=== PATIENT | male | born 1975 | race Hispanic/Latino ===

== ENCOUNTER 2021-08-28 02:54 | Emergency (ER) | payer OTHER ==
[~2021-08-28] VITALS: Ht 175.3 cm; Wt 117.9 kg
[2021-08-28 03:16] LABS: BASOPHILS % (AUTO) 0.3 % (0.0-5.0); EOSINOPHILS % (AUTO) 1.7 % (0.0-8.0); HEMATOCRIT 41.1 % (42-54); LYMPHOCYTES % (AUTO) 26.2 % (21.0-51.0); MEAN CORPUSCULAR HEMOGLOBIN 28.2 pg (27.0-33.0); MEAN CORPUSCULAR HGB CONC 33.6 g/dL (32.0-36.0); MEAN CORPUSCULAR VOLUME 83.9 fL (79-99); MONOCYTES % (AUTO) 8.5 % (3.0-13.0); NEUTROPHILS % (AUTO) 62.9 % (40.0-77.0); PLATELET COUNT (AUTO) 289 K/uL (130-400); RED CELL DISTRIBUTION WIDTH 13.1 % (11.0-15.5); WHITE BLOOD COUNT (AUTO) 11.5 K/uL (4.8-10.8)
[2021-08-28 03:27] LABS: CREATININE 1.1 mg/dL (0.5-1.5); POTASSIUM 3.5 mmol/L (3.5-5.1)
[2021-08-28] MEDS ORDERED: FENTANYL CITRATE PF 50 MCG/1 ML 2ML VIAL IVP ONE (03:30)
[2021-08-28] MEDS ORDERED: FAMOTIDINE 20MG VIAL IV ONE (03:30)
[2021-08-28] MEDS ORDERED: ONDANSETRON 4MG INJ IVP ONE (03:30)
[2021-08-28 03:31] LABS: ALBUMIN 3.8 g/dL (3.5-5.0); BILIRUBIN,TOTAL 0.4 mg/dL (0.2-1.0)
[2021-08-28] MEDS ORDERED: KETOROLAC 30MG VIAL (30MG/ML) IV ONE (04:00)
[2021-08-28] MEDS ORDERED: PROMETHAZINE HCL 25 MG/ML 1ML AMPULE IM ONE (04:00)
[2021-08-28 07:24] LABS: APPEARANCE,URINE Clear (CLEAR); BILIRUBIN,URINE Negative (NEGATIVE); COLOR,URINE Yellow (YELLOW); GLUCOSE, URINE (UA) Negative (NEGATIVE); KETONES,URINE Trace mg/dL (NEGATIVE); LEUKOCYTE ESTERASE ,URINE Negative (NEGATIVE); NITRATE,URINE Negative (NEGATIVE); OCCULT BLOOD,URINE Negative (NEGATIVE); PH,URINE 7.5 (5.0-8.0); PROTEIN,URINE Negative (NEGATIVE)
[2021-08-28 07:39] LABS: BACTERIA,URINE Rare /HPF (None Seen); RBC,URINE 0-1 /HPF (0-1); SQUAMOUS EPITHELIAL CELL,UR Rare /HPF (0-2); WBC,URINE 0-1 /HPF (0-1)
[2021-08-28] MEDS ORDERED: DICY20TA2 PO ×2 (07:43)
[2021-08-28] MEDS ORDERED: ONDA4TAB4 PO ×2 (07:43)
[2021-08-28 08:08] VITALS: BP 104/63
== END 2021-08-28 08:57 | disposition home or self-care (01) ==
LOC: EDH 02:54
DX: K80.20 Calculus of gallbladder without cholecystitis without obstruction (principal); E11.9 Type 2 diabetes mellitus without complications; I10 Essential (primary) hypertension; Z79.1 Long term (current) use of non-steroidal anti-inflammatories (NSAID); Z79.899 Other long term (current) drug therapy
CPT/HCPCS: 36415; 74176; 76705; 80053; 81001; 82550; 83690; 84484 ×2; 85025; 93005; 96372; 96374; 96375; 99285; J1885; J2405; J2550; J3010; J3490

== ENCOUNTER 2021-08-29 10:17 | Inpatient (IN) | payer OTHER ==
[~2021-08-29] VITALS: Ht 175.3 cm; Wt 126.2 kg
[~2021-08-29 10:17] MED LIST: DICY20TA2 PO; ONDA4TAB4 PO
[2021-08-29 10:54] LABS: BASOPHILS % (AUTO) 0.2 % (0.0-5.0); EOSINOPHILS % (AUTO) 0.1 % (0.0-8.0); HEMATOCRIT 44.8 % (42-54); LYMPHOCYTES % (AUTO) 8.9 % (21.0-51.0); MEAN CORPUSCULAR VOLUME 84.7 fL (79-99); MONOCYTES % (AUTO) 8.7 % (3.0-13.0); NEUTROPHILS % (AUTO) 81.5 % (40.0-77.0); PLATELET COUNT (AUTO) 286 K/uL (130-400); RED BLOOD CELL COUNT(AUTO) 5.29 MIL/uL (4.50-6.20); RED CELL DISTRIBUTION WIDTH 13.2 % (11.0-15.5); WHITE BLOOD COUNT (AUTO) 17.6 K/uL (4.8-10.8)
[2021-08-29] MEDS ORDERED: ONDANSETRON 4MG INJ IVP SCH (11:00)
[2021-08-29] MEDS ORDERED: HYDROMORPHONE 1 MG INJ IVP SCH (11:00)
[2021-08-29] MEDS: LACTATED RINGERS 1000ML 1,000 ML IV SCH (11:02)
[2021-08-29 11:29] LABS: INR 1.02 (0.85-1.15); PROTHROMBIN TIME 11.1 SEC (9.6-11.6)
[2021-08-29 11:31] LABS: CARBON DIOXIDE 32 mmol/L (21-32); CHLORIDE 99 mmol/L (101-111); CREATININE 1.3 mg/dL (0.5-1.5); GLOMERULAR FILTR. RATE CALC 63 mL/min (>60); GLUCOSE,RANDOM 123 mg/dL (70-105); POTASSIUM 3.4 mmol/L (3.5-5.1); SODIUM SERUM 139 mmol/L (136-145); UREA NITROGEN, BLOOD 19 mg/dL (7-18)
[2021-08-29 11:36] LABS: ALANINE AMINOTRANSFERASE 37 U/L (12-78); ALBUMIN 3.8 g/dL (3.5-5.0); AMYLASE 38 U/L (25-115); ASPARTATE AMINOTRANSFERASE 16 U/L (10-37); BILIRUBIN,TOTAL 1.4 mg/dL (0.2-1.0); TOTAL PROTEIN, SERUM 7.4 g/dL (6.0-8.3)
[2021-08-29 11:38] LABS: LIPASE < 50 U/L (114-286)
[2021-08-29] MEDS ORDERED: 0.9%NACL 50ML 50 ML IV ONE (12:24)
[2021-08-29] MEDS ORDERED: ONDANSETRON 4MG INJ IVP ONE (12:30)
[2021-08-29] MEDS ORDERED: ZOSYN 3.375GM+NS 50ML 3.38 GM in 0.9%NACL 50ML 50 ML IV SCH ×2 (12:30)
[2021-08-29] MEDS ORDERED: MORPHINE 5 MG/ML VIAL (5MG OR GREATER DOSE) IV ONE (12:30)
[2021-08-29] MEDS: ZOSYN 3.375GM +NS 50ML IV SCH ×2 (12:40→19:49)
[2021-08-29 17:15] VITALS: BP 125/78
[2021-08-29] MEDS: HYDROMORPHONE 0.5 MG SYG (0.5MG/0.5ML) IVP PRN ×2 (17:33→23:46)
[2021-08-29] MEDS ORDERED: GLUCAGON 1MG KIT 1 MG ML IM PRN (18:00)
[2021-08-29] MEDS ORDERED: DEXTROSE 50%-WATER 50 ML DISP.SYRIN IV PRN (18:00)
[2021-08-29] MEDS: INSULIN HUMULIN R 100 UNIT/ML 3ML SQ SCH ×2 (18:00→23:57)
[2021-08-29] MEDS ORDERED: ONDANSETRON 4MG INJ IVP PRN (18:30)
[2021-08-29 19:31] VITALS: BP 123/64
[2021-08-29] MEDS: 0.9%NACL 50ML 50 ML IV SCH (19:49)
[2021-08-29] MEDS: FAMOTIDINE 20MG VIAL IV SCH (19:50)
[2021-08-29] MEDS ORDERED: HYDROMORPHONE 1 MG INJ IVP ONE (20:40)
[2021-08-29 23:46] VITALS: BP 114/73
[2021-08-30] MEDS ORDERED: KETOROLAC 30MG VIAL (30MG/ML) IV ONE (02:43)
[2021-08-30 03:48] VITALS: BP 104/64
[2021-08-30 04:59] LABS: BASOPHILS % (AUTO) 0.2 % (0.0-5.0); HEMATOCRIT 38.7 % (42-54); LYMPHOCYTES % (AUTO) 7.1 % (21.0-51.0); MEAN CORPUSCULAR HEMOGLOBIN 27.9 pg (27.0-33.0); MEAN CORPUSCULAR HGB CONC 32.8 g/dL (32.0-36.0); MEAN CORPUSCULAR VOLUME 85.1 fL (79-99); MONOCYTES % (AUTO) 9.4 % (3.0-13.0); NEUTROPHILS % (AUTO) 82.6 % (40.0-77.0); PLATELET COUNT (AUTO) 248 K/uL (130-400); RED BLOOD CELL COUNT(AUTO) 4.55 MIL/uL (4.50-6.20); RED CELL DISTRIBUTION WIDTH 13.4 % (11.0-15.5); WHITE BLOOD COUNT (AUTO) 21.4 K/uL (4.8-10.8)
[2021-08-30] MEDS: 0.9%NACL 50ML 50 ML IV SCH ×3 (05:11→19:23)
[2021-08-30] MEDS: ZOSYN 3.375GM +NS 50ML IV SCH ×3 (05:11→19:23)
[2021-08-30 05:19] LABS: ALANINE AMINOTRANSFERASE 92 U/L (12-78); AMYLASE 28 U/L (25-115); ASPARTATE AMINOTRANSFERASE 45 U/L (10-37); BILIRUBIN,TOTAL 1.5 mg/dL (0.2-1.0); CARBON DIOXIDE 31 mmol/L (21-32); CHLORIDE 101 mmol/L (101-111); CREATININE 1.4 mg/dL (0.5-1.5); GLOMERULAR FILTR. RATE CALC 57 mL/min (>60); GLUCOSE,RANDOM 127 mg/dL (70-105); POTASSIUM 3.2 mmol/L (3.5-5.1); SODIUM SERUM 141 mmol/L (136-145); UREA NITROGEN, BLOOD 18 mg/dL (7-18)
[2021-08-30 05:20] LABS: LIPASE < 50 U/L (114-286)
[2021-08-30] MEDS: INSULIN HUMULIN R 100 UNIT/ML 3ML SQ SCH ×4 (06:00→23:27)
[2021-08-30 07:15] VITALS: BP 103/75
[2021-08-30] MEDS: HYDROMORPHONE 0.5 MG SYG (0.5MG/0.5ML) IVP PRN (08:14)
[2021-08-30] MEDS: FAMOTIDINE 20MG VIAL IV SCH ×2 (08:16→19:22)
[2021-08-30 11:10] VITALS: BP 130/88
[2021-08-30] MEDS ORDERED: HYDROMORPHONE 1 MG INJ ONE (12:21)
[2021-08-30] MEDS ORDERED: HYDROMORPHONE 1 MG INJ IVP PRN (12:30)
[2021-08-30] MEDS ORDERED: HYDROMORPHONE 0.5 MG SYG (0.5MG/0.5ML) IVP PRN (12:30)
[2021-08-30 15:10] VITALS: BP 113/46
[2021-08-30] MEDS ORDERED: KETOROLAC 15MG/ML VIAL (15MG/ML) ONE (15:42)
[2021-08-30] MEDS ORDERED: MAGNESIUM 2GM PREMIX 50ML 50 ML IV ONE (15:42)
[2021-08-30] MEDS ORDERED: LIDOCAINE HCL-MPF 1% 2ML VIAL IV PRN (16:00)
[2021-08-30] MEDS ORDERED: MAGNESIUM 2GM PREMIX 50ML 50 ML IV SCH (16:00)
[2021-08-30] MEDS: POTASSIUM CHLORIDE 10MEQ/100ML 100 ML IV PRN ×2 (18:31→19:49)
[2021-08-30 20:16] VITALS: BP 120/69
[2021-08-30] MEDS ORDERED: PROPOFOL 10 MG/ML 20ML VIAL IV ONE ×2 (22:25→22:45)
[2021-08-30] MEDS ORDERED: ONDANSETRON 4MG INJ ONE (22:25)
[2021-08-30] MEDS ORDERED: MIDAZOLAM HCL 1 MG/ML 2ML VIAL ONE (22:25)
[2021-08-30] MEDS ORDERED: LIDOCAINE PF 100MG/5ML (2%) SYRINGE 5ML ONE (22:25)
[2021-08-30] MEDS ORDERED: SUCCINYLCHOLINE CHLORIDE 20 MG/ML 10 ML VIAL ONE (22:25)
[2021-08-30] MEDS ORDERED: FENTANYL CITRATE PF 50 MCG/1 ML 5ML AMP IV ONE (22:26)
[2021-08-30] MEDS ORDERED: ROCURONIUM 10MG/1ML SYR 10 MG/ML ML ONE (22:26)
[2021-08-30] MEDS ORDERED: LIDOCAINE HCL 1% MDV 50ML VIAL ONE (22:31)
[2021-08-30] MEDS ORDERED: BUPIVACAINE/PF 0.5% 10ML VIAL ONE (22:31)
[2021-08-30] MEDS ORDERED: PHENYLEPHRINE HCL 10 MG/ML 1ML VIAL IV ONE (23:03)
[2021-08-30] MEDS ORDERED: DEXAMETHASONE SOD PHOSPHATE 10MG/ML 1ML VIAL ONE (23:15)
[2021-08-30] MEDS: LACTATED RINGERS 1000ML 1,000 ML IV SCH (23:37)
[2021-08-31] VITALS (26 sets, daily range): BP systolic 97–140; BP diastolic 50–83
[2021-08-31] MEDS ORDERED: FENTANYL CITRATE PF 50 MCG/1 ML 2ML VIAL ONE ×2 (00:18→01:01)
[2021-08-31] MEDS ORDERED: KETOROLAC 30MG VIAL (30MG/ML) ONE (00:42)
[2021-08-31] MEDS ORDERED: NEOSTIGMINE 5MG/5ML SYR IV ONE (00:45)
[2021-08-31] MEDS ORDERED: GLYCOPYRROLATE 1 MG/5 ML SYRINGE ONE (00:45)
[2021-08-31] MEDS: LACTATED RINGERS 1000ML 1,000 ML IV SCH (01:12)
[2021-08-31] MEDS: 0.9%NACL 50ML 50 ML IV SCH ×3 (04:07→20:28)
[2021-08-31] MEDS: ZOSYN 3.375GM +NS 50ML IV SCH ×3 (04:07→20:28)
[2021-08-31] MEDS: INSULIN HUMULIN R 100 UNIT/ML 3ML SQ SCH ×4 (05:30→21:00)
[2021-08-31 06:47] LABS: HEMATOCRIT 36.4 % (42-54); MEAN CORPUSCULAR HEMOGLOBIN 28.1 pg (27.0-33.0); MEAN CORPUSCULAR HGB CONC 32.1 g/dL (32.0-36.0); MEAN CORPUSCULAR VOLUME 87.5 fL (79-99); RED BLOOD CELL COUNT(AUTO) 4.16 MIL/uL (4.50-6.20); RED CELL DISTRIBUTION WIDTH 13.9 % (11.0-15.5); WHITE BLOOD COUNT (AUTO) 20.6 K/uL (4.8-10.8)
[2021-08-31] MEDS ORDERED: KCL 20 MEQ ERTAB PO PRN (07:00)
[2021-08-31] MEDS ORDERED: POTASSIUM CHLORIDE 20MEQ/100ML 100 ML IV PRN (07:00)
[2021-08-31] MEDS ORDERED: POTASSIUM CHLORIDE 10% ELIXIR 20 MEQ/15 ML UDCUP PO PRN (07:00)
[2021-08-31 07:01] LABS: ALBUMIN 2.5 g/dL (3.5-5.0); BILIRUBIN,TOTAL 0.9 mg/dL (0.2-1.0); CREATININE 1.7 mg/dL (0.5-1.5); MAGNESIUM 2.5 mg/dL (1.80-2.40); POTASSIUM 3.5 mmol/L (3.5-5.1); TOTAL PROTEIN, SERUM 6.9 g/dL (6.0-8.3)
[2021-08-31] MEDS: KETOROLAC 15MG/ML VIAL (15MG/ML) IV PRN (08:14)
[2021-08-31] MEDS: FAMOTIDINE 20MG VIAL IV SCH ×2 (08:15→20:28)
[2021-09-01 00:37] VITALS: BP 138/74
[2021-09-01] MEDS: ZOSYN 3.375GM +NS 50ML IV SCH ×3 (04:21→19:24)
[2021-09-01] MEDS: 0.9%NACL 50ML 50 ML IV SCH ×3 (04:21→19:24)
[2021-09-01 04:45] VITALS: BP 110/63
[2021-09-01] MEDS: KETOROLAC 15MG/ML VIAL (15MG/ML) IV PRN ×2 (04:45→23:30)
[2021-09-01 05:25] LABS: MEAN CORPUSCULAR HEMOGLOBIN 27.4 pg (27.0-33.0); MEAN CORPUSCULAR HGB CONC 31.5 g/dL (32.0-36.0); RED BLOOD CELL COUNT(AUTO) 3.91 MIL/uL (4.50-6.20); WHITE BLOOD COUNT (AUTO) 16.3 K/uL (4.8-10.8)
[2021-09-01 05:56] LABS: ALBUMIN 2.3 g/dL (3.5-5.0); BILIRUBIN,TOTAL 0.4 mg/dL (0.2-1.0); CREATININE 1.4 mg/dL (0.5-1.5); POTASSIUM 3.4 mmol/L (3.5-5.1); TOTAL PROTEIN, SERUM 6.7 g/dL (6.0-8.3)
[2021-09-01] MEDS: INSULIN HUMULIN R 100 UNIT/ML 3ML SQ SCH ×4 (07:30→20:07)
[2021-09-01 08:00] VITALS: BP 101/61
[2021-09-01] MEDS: FAMOTIDINE 20MG VIAL IV SCH ×2 (09:18→19:24)
[2021-09-01 12:05] VITALS: BP 116/73
[2021-09-01 16:00] VITALS: BP 105/65
[2021-09-01 20:00] VITALS: BP 156/92
[2021-09-02 00:26] VITALS: BP 138/88
[2021-09-02 04:00] VITALS: BP 116/66
[2021-09-02] MEDS: ZOSYN 3.375GM +NS 50ML IV SCH ×3 (04:44→20:11)
[2021-09-02] MEDS: 0.9%NACL 50ML 50 ML IV SCH ×3 (04:44→20:12)
[2021-09-02] MEDS: INSULIN HUMULIN R 100 UNIT/ML 3ML SQ SCH ×4 (06:04→20:12)
[2021-09-02 06:45] LABS: HEMATOCRIT 33.1 % (42-54); MEAN CORPUSCULAR HEMOGLOBIN 27.7 pg (27.0-33.0); MEAN CORPUSCULAR HGB CONC 31.4 g/dL (32.0-36.0); RED BLOOD CELL COUNT(AUTO) 3.76 MIL/uL (4.50-6.20); WHITE BLOOD COUNT (AUTO) 8.7 K/uL (4.8-10.8)
[2021-09-02 06:59] LABS: CREATININE 1.2 mg/dL (0.5-1.5); POTASSIUM 4.1 mmol/L (3.5-5.1)
[2021-09-02 08:00] VITALS: BP 124/59
[2021-09-02] MEDS: FAMOTIDINE 20MG VIAL IV SCH ×2 (08:48→20:11)
[2021-09-02 11:41] VITALS: BP 127/72
[2021-09-02 16:00] VITALS: BP 149/91
[2021-09-02 19:59] VITALS: BP 133/80
[2021-09-02] MEDS: KETOROLAC 15MG/ML VIAL (15MG/ML) IV PRN (23:52)
[2021-09-03] VITALS: BP 137/80
[2021-09-03 03:35] VITALS: BP 141/72
[2021-09-03] MEDS: 0.9%NACL 50ML 50 ML IV SCH ×2 (04:55→13:59)
[2021-09-03] MEDS: ZOSYN 3.375GM +NS 50ML IV SCH ×2 (04:55→13:46)
[2021-09-03 05:15] LABS: ALBUMIN 2.4 g/dL (3.5-5.0); BILIRUBIN,DIRECT 0.1 mg/dL (0.0-0.3); BILIRUBIN,TOTAL 0.3 mg/dL (0.2-1.0); TOTAL PROTEIN, SERUM 6.5 g/dL (6.0-8.3)
[2021-09-03] MEDS: INSULIN HUMULIN R 100 UNIT/ML 3ML SQ SCH ×2 (06:11→11:30)
[2021-09-03 08:00] VITALS: BP 133/69
[2021-09-03] MEDS: FAMOTIDINE 20MG VIAL IV SCH (09:19)
[2021-09-03 12:00] VITALS: BP 125/70
[2021-09-03 16:00] VITALS: BP 165/94
== END 2021-09-03 16:40 | disposition home or self-care (01) | DRG 419 ==
LOC: EDH 10:17 → EDHIP 12:17 → OBSVTOIN 12:17 → INTOOBSV 12:17 → 3DH 17:32
PROVIDERS: ADMIT Family Medicine; ATTEND Family Medicine
PROC: 0FB44ZZ Excision of Gallbladder, Percutaneous Endoscopic Approach (ICD-10-PCS; principal; 2021-08-31)
DX: K80.00 Calculus of gallbladder with acute cholecystitis without obstruction (principal); K82.A1 Gangrene of gallbladder in cholecystitis; E78.5 Hyperlipidemia, unspecified; I10 Essential (primary) hypertension; Z20.822 Contact with and (suspected) exposure to COVID-19; E11.9 Type 2 diabetes mellitus without complications; K76.0 Fatty (change of) liver, not elsewhere classified; E86.0 Dehydration; E87.6 Hypokalemia; K66.0 Peritoneal adhesions (postprocedural) (postinfection)
CPT/HCPCS: 36415; 74176; 74181; 76705; 80048; 80053; 80076; 81001; 82150; 82550; 82948; 83690; 83735; 84484; 85025; 85027; 85610; 85730; 86850; 86900; 86901; 87635; 93005; 96372; 96374; 96375; 99291; G0378; J0330; J1100; J1170; J1885; J2001; J2250; J2270; J2370; J2405; J2543; J2550; J2704; J2710; J3010; J3475; J3490; J7030; J7120

== ENCOUNTER 2024-06-21 21:20 | Emergency (ER) | payer BC, OTHER ==
[~2024-06-21] VITALS: Ht 175.3 cm; Wt 120.2 kg
[~2024-06-21 21:20] MED LIST changes: -DICY20TA2 PO; +FISH1CAP63 PO; +GLIP5POW MC; +LOSA1TAB54 PO; +MILK175T2 PO; -ONDA4TAB4 PO
[2024-06-21 21:54] LABS: BASOPHILS # (AUTO) 0.04 K/uL (0.00-0.20); BASOPHILS % (AUTO) 0.3 % (0.0-5.0); EOSINOPHILS # (AUTO) 0.26 K/uL (0.00-0.70); EOSINOPHILS % (AUTO) 2.1 % (0.0-8.0); HEMATOCRIT 47.2 % (42-54); LYMPHOCYTES # (AUTO) 3.1 K/uL (1.0-4.8); LYMPHOCYTES % (AUTO) 25.4 % (21.0-51.0); MEAN CORPUSCULAR HEMOGLOBIN 28.6 pg (27.0-33.0); MEAN CORPUSCULAR HGB CONC 33.1 g/dL (32.0-36.0); MEAN CORPUSCULAR VOLUME 86.6 fL (79-99); MONOCYTES % (AUTO) 8.5 % (3.0-13.0); NEUTROPHILS # (AUTO) 7.6 K/uL (1.8-7.7); NEUTROPHILS % (AUTO) 62.9 % (40.0-77.0); PLATELET COUNT (AUTO) 302 K/uL (130-400); RED BLOOD CELL COUNT(AUTO) 5.45 MIL/uL (4.50-6.20); RED CELL DISTRIBUTION WIDTH 13.6 % (11.0-15.5); WHITE BLOOD COUNT (AUTO) 12.1 K/uL (4.8-10.8)
[2024-06-21 22:04] LABS: INR 0.96 (0.85-1.15); PROTHROMBIN TIME 10.4 SEC (9.6-11.6)
[2024-06-21 22:05] LABS: CREATININE 1.2 mg/dL (0.5-1.3); POTASSIUM 3.7 mmol/L (3.5-5.1)
[2024-06-21 22:06] LABS: PARTIAL THROMBOPLASTIN TIME 25.1 SEC (26.3-35.5)
[2024-06-21 22:41] LABS: BILIRUBIN,DIRECT 0.6 mg/dL (0.0-0.3); BILIRUBIN,TOTAL 1.1 mg/dL (0.2-1.0); TOTAL PROTEIN, SERUM 7.9 g/dL (6.0-8.3)
[2024-06-21 23:20] LABS: ADD UA MICROSCOPIC YES; APPEARANCE,URINE CLOUDY (CLEAR); BILIRUBIN,URINE NEGATIVE (NEGATIVE); COLOR,URINE YELLOW (YELLOW); GLUCOSE, URINE (UA) NEGATIVE (NEGATIVE); KETONES,URINE 5 mg/dL (NEGATIVE); LEUKOCYTE ESTERASE ,URINE 25 Leu/uL (NEGATIVE); NITRATE,URINE NEGATIVE (NEGATIVE); OCCULT BLOOD,URINE NEGATIVE (NEGATIVE); PH,URINE 5.5 (5.0-8.0); PROTEIN,URINE 20 mg/dL (NEGATIVE); UROBILINOGEN,URINE 3 mg/dL (0.2-1.0)
[2024-06-21 23:34] LABS: AMPHET/METH SCREEN,URINE NEGATIVE (NEGATIVE); BACTERIA,URINE FEW /HPF (None Seen); BARBITURATE SCREEN, URINE NEGATIVE (NEGATIVE); BENZODIAZEPINES SCREEN,URINE NEGATIVE (NEGATIVE); CANNABINOID SCREEN,URINE NEGATIVE (NEGATIVE); COCAINE SCREEN,URINE NEGATIVE (NEGATIVE); MUCUS,URINE FEW LPF (None Seen); OPIATE SCREEN,URINE NEGATIVE (NEGATIVE); PHENCYCLIDINE SCREEN,URINE NEGATIVE (NEGATIVE); SQUAMOUS EPITHELIAL CELL,UR RARE /HPF (0-2)
[2024-06-22] MEDS ORDERED: ONDA-243 PO (00:42)
[2024-06-22] MEDS ORDERED: FAMO-136 PO (00:42)
[2024-06-22] MEDS ORDERED: KETO10TA2 PO (00:42)
[2024-06-22] MEDS ORDERED: CIPR-278 PO (00:42)
[2024-06-22] MEDS: ONDANSETRON 4MG INJ IVP ONE (00:56)
[2024-06-22] MEDS: KETOROLAC 15MG/ML VIAL (15MG/ML) IV ONE (00:56)
[2024-06-22] MEDS: FAMOTIDINE 20MG VIAL IV ONE (00:56)
[2024-06-22 01:10] VITALS: BP 128/85; PULSE 71; RESP 16; O2SAT 98
== END 2024-06-22 01:13 | disposition home or self-care (01) ==
LOC: EDH 21:20
DX: R07.89 Other chest pain (principal); R06.02 Shortness of breath; E11.9 Type 2 diabetes mellitus without complications; E78.00 Pure hypercholesterolemia, unspecified; I10 Essential (primary) hypertension; Z79.899 Other long term (current) drug therapy; Z79.2 Long term (current) use of antibiotics; Z79.84 Long term (current) use of oral hypoglycemic drugs
CPT/HCPCS: 99284; 71045; 82550; 80076; 84484; 80048; 80305; 83690; 85025; 85610; 85730; 87086; 82948; 36415; 93005; 81001; 96374; 96375; J3490; J2405; J1885

== ENCOUNTER → 2024-06-23 | Outpatient (CLI) | payer BC ==
[~2024-06-23] MED LIST changes: +CIPR-278 PO; +FAMO-136 PO; +KETO10TA2 PO; +ONDA-243 PO
== END | disposition home or self-care (01) ==
LOC: RAH 14:09
PROVIDERS: ATTEND Internal Medicine
DX: N23 Unspecified renal colic (principal); Z90.49 Acquired absence of other specified parts of digestive tract
CPT/HCPCS: 74176